=== PATIENT | female | born 1955 | race Caucasian/White ===

== ENCOUNTER → 2018-05-25 | Outpatient (CLI) | payer OTHER ==
[~2018-05-25] MED LIST: ATORVASTATIN CA40 MG PO; AZOR 10-40 MG1 EACH; BAYER CHEWABLE81 MG PO; CARDIZEM CD240 MG PO; CARVEDILOL12.5 MG PO; CARVEDILOL3.125 MG PO; CIPROFLOXACIN500 M1 PO; CLONIDINE0.1 PO; COLESTID1 GM PO; CRESTOR20 MG PO; EFFEXOR XR75 MG PO; EFFEXOR50 MG PO; ELIQUIS5 MG PO; FLAGYL500 MG PO; FLEXERIL PO; HYDROCHLOROTHIA25 M1 PO; HYDROCHLOROTHIA25 M2 PO; JARDIANCE10 MG PO; LEVOTHYROXIN0.025 MG PO; LISINOPRIL20 MG PO; LISINOPRIL5 MG PO; LOPRESSOR25 PO; LOW DOSE ASPIRI81 M1 PO; MACROBID 100 M100 M1 PO; METFORMIN HCL500 MG PO; NEXIUM; NITROSTAT0.4 M1 PO; NITROSTAT0.4 MG SL; NORVASC5 MG PO; OMEPRAZOLE40 MG PO; PHENERGAN 25 MG25 M1 PO; PLAVIX 75 MG TA75 MG PO; PRESTIQUE; PREVACID 24HR15 MG PO; SORINE 80 MG TA80 M1 PO; SYNTHROID100 MC1 PO; TIKOSYN.25 PO; TIKOSYN.5 PO; TIKOSYN500 MCG PO; TOPROL XL25 MG PO; TRAMADOL 50 MG50 MG PO; TRAZODONE 150150 M1 PO; VENLAFAXINE HC150 M1 PO; VICODIN 5-5001 EACH PO; XANAX 0.25 MG0.25 MG PO; ZETIA10 MG PO; ZOFRAN ODT4 MG PO; ZOFRAN4 MG PO
[2018-05-25 09:28] LABS: HEMATOCRIT 40.9 % (37.0-47.0); HEMOGLOBIN 13.4 gm/dL (12.0-15.0); MCH 28.1 pg (26.0-34.0); MCHC 32.8 g/dL (28.0-37.0); MCV 85.7 fL (80.0-100.0); RBC 4.78 mil/uL (4.20-5.00)
[2018-05-25 09:47] LABS: CALCIUM 10.4 mg/dL (8.5-10.1); CREATININE 0.8 mg/dL (0.6-1.0); POTASSIUM 5.4 mmol/L (3.5-5.1); TOTAL BILIRUBIN 0.4 mg/dL (<0.1-1.0); TOTAL PROTEIN 7.8 g/dL (6.4-8.2)
== END ==
LOC: CAT 09:02
PROVIDERS: Internal Medicine Cardiovascular Disease
DX: I48.91 Unspecified atrial fibrillation (principal); J98.11 Atelectasis; K44.9 Diaphragmatic hernia without obstruction or gangrene; Z95.0 Presence of cardiac pacemaker

== ENCOUNTER 2018-05-29 06:35 | Observation (INO) | payer OTHER ==
[2018-05-29] VITALS (13 sets, daily range): BP systolic 102–131; BP diastolic 44–83
[~2018-05-29] VITALS: Ht 165.1 cm; Wt 107.4 kg
--- NOTE | ~2018-05-29 | P ---
[facility] [place] [address] PROCEDURE REPORT Name: JUAREZ ZABALA Room #: 206-P [facility] M.R.#: [id number] Admission: 05/29/18 ������������������ Attend Phys: Eliazar Mora MD Discharge: ������������������ Date of : 55 Report #: [id number] THIS REPORT FOR: //name// CC: Soham Mora DATE OF SERVICE: 05/29/2018 PREOPERATIVE DIAGNOSES: 1. Paroxysmal atrial fibrillation. 2. Sick sinus syndrome. POSTOPERATIVE DIAGNOSES: 1. Paroxysmal atrial fibrillation. 2. Sick sinus syndrome. HISTORY: The patient is a 63-year-old female with a history of paroxysmal atrial fibrillation as well as sick sinus syndrome, who has had continued AFib despite antiarrhythmic drug therapy. She is here for AFib ablation. PROCEDURES PERFORMED: 1. AFib ablation, CPT code 97594. 2. 3D mapping EP, CPT code 14015. 3. Intracardiac echo, CPT code 38972. 4. Preprocedural pacemaker reprogramming, CPT code 86602. 5. Post-procedure pacemaker reprogramming, CPT CODE 58234. ANESTHESIA: The patient underwent general anesthesia with no anesthesia-related complications. DESCRIPTION OF PROCEDURE: The patient underwent informed consent. We discussed the details of the procedure including the risk, which include, but not limited to bleeding, vascular damage, cardiac perforation, stroke and AL. She understood these risks and is willing to proceed. As such, the patient was brought to the EP Laboratory in a fasting and nonsedated state and prepped and draped in a sterile fashion. Next, I injected lidocaine in the right femoral groin region and then obtained access to the right femoral vein x 3, placing an 8, 9 and 7-Greek short sheath using the modified Seldinger technique. Prior to starting the case, her Medtronic dual chamber pacemaker was reprogrammed to the DDD 60 mode. Next, I placed a decapolar catheter easily in the coronary sinus and an ICE catheter into the right atrium. I then created a 3D geometry of the left atrium using CartoSound where I was able to delineate the left atrial appendage, the left common ostium, which was large. This left common ostium appeared to just be a continuation of [facility] [address] [place] [address] PROCEDURE REPORT Name: JUAREZ ZABALA Room #: 206-P [facility]..#: [id number] Admission: 05/29/18 ������������������ Attend Phys: Eliazar Mora MD Discharge: ������������������ Date of : 55 Report #: [id number] the left atrium. I then labeled the right superior and right inferior pulmonary veins. Next, the patient was systemically heparinized and a transseptal was performed using a SL1 sheath and a [place] needle. This was straightforward and she had a nice thin interatrial septum. I advanced my SL1 sheath into the left atrium and then placed a Lasso into the left atrium and created a 3D geometry of the left atrium and a voltage map. Again, there was a large left common ostium, which was slightly unusual in that it tapered off the left atrium with no clear ostium. Next, I exchanged my SL1 sheath for the cryo sheath and placed the cryoballoon into the left atrium. Given the large size of this left common ostium, this was not going to be isolated with a few freezes. As such, I had to perform multiple freezes in a segmental manner. Therefore, I performed multiple freezes along the superior, anterior, inferior and posterior aspects of this vein. There were a total of 10 freezes. The temperatures were not great on most of these freezes, were around anywhere from -25 to -35 degrees. As this vein was not isolating, I did turn my attention to the right superior pulmonary vein and this isolated nicely. I performed an initial 4-minute freeze with no evidence of isolation and performed a second freeze with more clockwise torque on the sheath and this resulted in isolation 20 seconds and therefore, I stayed on for 150 seconds. I then turned my attention to the right inferior pulmonary vein and I performed an initial freeze of 130 seconds, but there were temps of only -30. Therefore, I came off. The second freeze resulted in isolation within 30 seconds and I therefore performed a 4-minute freeze on this vessel. I then performed a third freeze somewhat more inferiorly to ensure that does not reconnect at this site and this third freeze was of 3 minutes duration. While isolating the right-sided veins, I performed phrenic nerve pacing from the decapolar catheter placed up in the subclavian vessel. I then turned my attention back to the left common ostium and performed a few additional freezes after I had created a repeat voltage map use my Lasso catheter. There was clearly a small area of connection along the posterior inferior aspect of this vein and attempts at cryoing this region were unsuccessful. Therefore, I took the cryoballoon out and placed the SmartTouch ThermoCool ablation catheter via the cryo sheath into the left atrium and guided by the voltage map, I isolated the area. It appeared that after coming on that the vein isolated within about 30 seconds as there were no longer any atrial signals noted on my distal ablation catheter. I did perform additional ablation along the posterior and inferior aspect of this vein to ensure that this did not reconnect. I then once again placed the Lasso catheter back into the left atrium and created a detailed 3D voltage map and there was now clear isolation of the left common ostium and the other pulmonary veins with evidence of a wide circumferential ablation of the left atrium. As such, a post-ablation EP study was performed. AV block was noted at 390 milliseconds. AV yaneth ERP was noted at 360 milliseconds at a 500-millisecond basic drive cycle length. I performed aggressive atrial burst pacing down to 250 milliseconds and could not induce any atrial fibrillation. Post-ablation, the patient was in sinus rhythm with sinus cycle length of 855 milliseconds, CT interval 170 milliseconds, QRS duration 88 milliseconds, and QT interval 461 milliseconds. His pacemaker was reinterrogated and leads were [facility] [address] [place] [address] PROCEDURE REPORT Name: JUAREZ ZABALA Room #: 206-P [facility] M.R.#: [id number] Admission: 05/29/18 ������������������ Attend Phys: Eliazar Mora MD Discharge: ������������������ Date of : 55 Report #: [id number] found to be functioning normally and this was programmed back to the DDDR 60-130 mode. Of note, this was a Imalogixtronic device. Using intracardiac ultrasound, I verified there is no evidence of pericardial effusion. As such, the patient then received systemic protamine and once ACT was within acceptable range, catheters and sheaths were pulled. Hemostasis was obtained. The patient awoke neurologically and hemodynamically intact. No complications and no significant bleeding. CONCLUSIONS: 1. Successful AFib ablation with isolation of the left common ostium using combination of cryoablation and radiofrequency ablation. 2. Successful ablation of the right superior and right inferior pulmonary veins utilizing cryoablation. 3. Successful creation of a wide circumferential ablation of the left and right-sided veins. ��������������������������������������������� ���������������������������������������� By: ��������������������������������������������� 1215 [id number] Eliazar Mora MD /nt
[~2018-05-29 06:35] MED LIST changes: -EFFEXOR XR75 MG PO; -JARDIANCE10 MG PO; -NITROSTAT0.4 M1 PO; -SYNTHROID100 MC1 PO; -TIKOSYN500 MCG PO; -TOPROL XL25 MG PO
[2018-05-29 07:20] LABS: ABSOLUTE NEUTROPHILS 4.8 thou/uL (1.4-8.2); BASOPHILS 0.4 % (0.0-2.0); HEMATOCRIT 41.3 % (37.0-47.0); HEMOGLOBIN 13.4 gm/dL (12.0-15.0); LYMPHOCYTES 34.5 % (24.0-44.0); MCH 27.6 pg (26.0-34.0); MCHC 32.5 g/dL (28.0-37.0); MCV 84.9 fL (80.0-100.0); MONOCYTES 5.5 % (1.0-8.0); PLATELET COUNT 339 thou/uL (150-400); POLYS 58.6 % (36.0-66.0); RBC 4.86 mil/uL (4.20-5.00); RDW 17.2 % (10.5-14.5); WBC 8.2 thou/uL (4.0-11.0)
[2018-05-29] MEDS ORDERED: TIKOSYN500 MCG PO (07:26)
[2018-05-29] MEDS ORDERED: JARDIANCE10 MG PO (07:27)
[2018-05-29] MEDS ORDERED: ZETIA10 MG PO (07:28)
[2018-05-29] MEDS ORDERED: SYNTHROID100 MC1 PO (07:29)
[2018-05-29] MEDS ORDERED: LISINOPRIL20 MG PO (07:29)
[2018-05-29] MEDS ORDERED: TOPROL XL25 MG PO (07:30)
[2018-05-29] MEDS ORDERED: METFORMIN HCL500 MG PO (07:30)
[2018-05-29 07:31] LABS: CALCIUM 9.2 mg/dL (8.5-10.1); CREATININE 0.8 mg/dL (0.6-1.0); POTASSIUM 4.4 mmol/L (3.5-5.1)
[2018-05-29] MEDS ORDERED: NITROSTAT0.4 M1 PO (07:31)
[2018-05-29] MEDS ORDERED: EFFEXOR XR75 MG PO (07:31)
[2018-05-29 07:33] LABS: APTT 25.4 Seconds (24.5-32.8); PROTIME 9.9 Seconds (9.3-11.4)
[2018-05-29 07:37] LABS: ALBUMIN 3.7 g/dL (3.4-5.0); TOTAL BILIRUBIN 0.5 mg/dL (<0.1-1.0); TOTAL PROTEIN 7.5 g/dL (6.4-8.2)
--- NOTE | 2018-05-29 17:26 | NUR ---
PT ADMITED FROM CARDIAC CATH. ADMISSION HX AND ASSESSMENT COMPLETED. RIGHT GROIN INCISION C/D/I. NO HEMATOMA NOTED. VSS. A PACED ON TELI. WILL CONTINUE TO MONITOR.
[2018-05-30 00:49] VITALS: BP 112/54
--- NOTE | 2018-05-30 03:37 | NUR ---
ASSUME CARE AT 1900. PT AO X4. PT POST CARDIAC ABLATION. OFF BEDREST AT 2030. VITAL SIGNS STABLE. DRESSING , RIGHT GROIN C/D/I WITH SMALL DRY BLOOD STAY. KRISHNAN PULLED, PT HAS SINCE BEEN ABLE TO VOID. PERSISTENT COUGH THAT PT REPORTS HAS BEEN GOING SINCE POST THE ABLATION PROCEDURE. GIVEN GUIFENASIN COUGH SYRUP . POSSIBLE DC TODAY. WILL CONTINUE TO FOLLOW POC.
[2018-05-30 05:22] VITALS: BP 126/64
[2018-05-30 08:07] VITALS: BP 140/83
[2018-05-30 11:30] VITALS: BP 128/76; BP 146/66
[2018-05-30 11:40] VITALS: BP 140/83
--- NOTE | 2018-05-30 12:39 | NUR ---
PATIENT ALERT AND ORIENTED AND WOULD LIKE TO DISCHARGE TODAY. PATIENT TALKING WITH FAMILY ABOUT DISCHARGE HOME. PATIENT AT BEDSIDE THIS AM AND TO DRIVE PATIENT HOME. PATIENT DISCHARGED IN STABLE CONDITION WITH WOUND SITE CLEAN DRY INTACT. REVIEW DISCHARGE INSTRUCTIONS, FOLLOW-UP APPOINTMENTS AND MEDICATIONS WITH PATIENT. ALL PERSONAL BELONGINGS TAKEN WITH PATIENT UPON DISCHARGE. PATIENT IN HURRY TO DISCHARGE AND INSIST TO WALK TO FRONT OF HOSPITAL WHERE WAS WAITING. ESCORTED PATIENT TO FRONT DOOR AND ASSISTED PATIENT TO CAR.
--- NOTE | 2018-05-30 19:11 | D ---
[facility] [place] [address] DISCHARGE SUMMARY Name: JUAREZ ZABALA Room #: 206-P [facility] Lisa MMorganRMorgan#: [id number] Admission: 05/29/18 ������������������ Attend Phys: Eliazar Mora MD Discharge: 05/30/18 ������������������ Date of : 55 Report #: [id number] THIS REPORT FOR: //name// CC: Soham Mora DATE OF SERVICE: 05/30/2018 ADMITTING DIAGNOSIS: Paroxysmal symptomatic atrial fibrillation, poorly controlled, on medications. DISCHARGE DIAGNOSES: 1. Symptomatic paroxysmal atrial fibrillation. 2. Hypertension. 3. Diabetes mellitus. 4. Dyslipidemia. 5. Hypothyroidism. DISCHARGE MEDICATIONS: Lisinopril 40 mg daily, Effexor XR 75 mg tablets 150 mg daily, Zetia 10 mg daily, Cardizem 240 mg daily, metoprolol 25 mg b.i.d., metformin 500 mg b.i.d., insulin p.r.n., dofetilide 0.5 mg b.i.d., Colestid 2 grams at bedtime, Lipitor 40 mg q. day, apixaban 5 mg b.i.d., Synthroid 0.05 mg daily. PROCEDURES PERFORMED: Catheter ablation of atrial fibrillation. FOLLOWUP: 1. Dr. Mora in 4 weeks. 2. Primary care in 7-10 days. DISCHARGE DIET: Home diet. BRIEF CLINICAL HISTORY: See history and physical in the chart. HOSPITAL COURSE: The patient was admitted to the hospital and underwent uncomplicated atrial fib ablation with fluoroscopic and CT guidance. Post-procedure, the patient did quite well without any significant symptomatology. No hematoma was described. No chest tightness, heaviness or fullness. She was allowed to ambulate without issues and is being discharged in [facility] [address] [place] [address] DISCHARGE SUMMARY Name: JUAREZ ZABALA Room #: 206-P [facility] of [facility]#: [id number] Admission: 05/29/18 ������������������ Attend Phys: Eliazar Mora MD Discharge: 05/30/18 ������������������ Date of : 55 Report #: [id number] stable condition to follow up with the previously stated discharge instructions and medications. ��������������������������������������������� <ELECTRONICALLY SIGNED> ���������������������������������������� By: David Espinoza MD ��������������������������������������������� 05/30/18 1911 [id number] David Espinoza MD /nt
== END 2018-05-30 12:30 | disposition home or self-care (01) ==
LOC: CATH 06:35 → 2N 13:56
PROVIDERS: ADMIT Internal Medicine Cardiovascular Disease
DX: I48.0 Paroxysmal atrial fibrillation (principal); I49.5 Sick sinus syndrome; I25.10 Atherosclerotic heart disease of native coronary artery without angina pectoris; I10 Essential (primary) hypertension; E11.9 Type 2 diabetes mellitus without complications; K21.9 Gastro-esophageal reflux disease without esophagitis; E78.00 Pure hypercholesterolemia, unspecified; G47.33 Obstructive sleep apnea (adult) (pediatric); I25.2 Old myocardial infarction; E03.9 Hypothyroidism, unspecified; E78.5 Hyperlipidemia, unspecified; Z95.5 Presence of coronary angioplasty implant and graft; Z87.891 Personal history of nicotine dependence; Z79.899 Other long term (current) drug therapy; Z79.84 Long term (current) use of oral hypoglycemic drugs
CPT/HCPCS: 62110; 62900; 65020; 65040; 70005

== ENCOUNTER → 2018-06-11 | Outpatient (CLI) | payer OTHER ==
[~2018-06-11] MED LIST changes: +EFFEXOR XR75 MG PO; +JARDIANCE10 MG PO; +NITROSTAT0.4 M1 PO; +SYNTHROID100 MC1 PO; +TIKOSYN500 MCG PO; +TOPROL XL25 MG PO
== END ==
LOC: ULTRA 15:23
DX: M79.89 Other specified soft tissue disorders (principal); M79.601 Pain in right arm